=== PATIENT | male | born 1955 | race Caucasian/White ===

== ENCOUNTER 2025-02-07 16:18 | Emergency (ER) | payer OTHER, SELFPAY ==
[2025-02-07 16:24] VITALS: BP 161/131
[2025-02-07 17:06] VITALS: BP 158/91; BMI 36.0
[2025-02-07 17:08] VITALS: BP 158/91
[2025-02-07] MEDS: DUONEB 3 ML INH (17:17)
[2025-02-07 17:53] LABS: COVID-19 Antigen Negative (Negative)
[2025-02-07 18:00] VITALS: BP 151/78
--- NOTE | 2025-02-07 18:01 | ED.GENMED ---
History of Present Illness
General
Chief Complaint: Cold/Flu/URI Symptoms
Time Seen by Provider: 02/07/25 16:44
History of Present Illness
History of Present Illness:
69-year-old male with history of hyperlipidemia and CAD status post VT presents to the emergency department for evaluation of recurrent dry cough, rhinorrhea, and malaise for the past 3 days. Patient's reportedly had similar symptoms earlier this
month for approximately 3 weeks and took a course of amoxicillin with improvement before symptoms recurred. Denies any objective fever currently. No dyspnea but does note wheezing. He is a current smoker
Review of Systems
Review of Systems
Allergies reviewed?: Yes
All Other Systems: ROS reviewed and negative except as documented in HPI and ROS
Phy Exam
Physical Exam
Physical Exam:
GEN: Well appearing, NAD, WDWN
HEENT: Oral mucosa moist, no scleral icterus
Cardiac: Regular rate and rhythm, no murmur
Lung: No respiratory distress, no tachypnea, mild wheezes on expiration throughout
MSK: No gross deformity or injuries
Skin: Good color, no pallor or jaundice, no rashes
Neuro: AO x3, moves all extremities freely
Psych: Calm, cooperative
Course
Orders/Labs/Results
Orders:
Orders
02/07/25 17:12
Ipratropium/Albuterol Sulfate [Duoneb] 3 ml INH R NOW STA
CR Chest - 2 Views Urgent
Comment:
Reason For Exam: cough
02/07/25 17:18
COVID-19 Antigen Urgent
Source: Nasal Swab
Influenza A+B Rapid Molecular Urgent
LILLY Source: Nasal Swab
Specimen Description:
Vital Signs
Initial and Last Documented VS:
Initial Vital Signs
Temp Pulse Resp Pulse Ox
98.4 F 80 19 100
02/07/25 16:20 02/07/25 16:20 02/07/25 16:20 02/07/25 16:20
Last Documented Vital Signs
Temp Pulse Resp BP Pulse Ox
98.4 F 69 18 151/78 100
02/07/25 16:20 02/07/25 18:00 02/07/25 18:00 02/07/25 18:00 02/07/25 18:01
MDM/Problems Addressed
MDM/Problems Addressed:
Patient is positive for influenza, chest x-ray shows no infiltrate. He is outside the window for reasonable treatment with antivirals, will treat with bronchodilators due to wheezing. Discussed supportive treatment and ED return parameters
*Pulse Oximetry
SaO2: 100
Oxygen Mode of Delivery: Room air
Patient hypoxic: no
*Critical Care Note
Total Time (30-74mins, 75-104mins- exclusive of procedures): Not Applicable
ED Attending Note
-
Portions of this chart may have been created with voice recognition software.� Occasional wrong word or��sound alike� substitutions may have occurred due to the inherent limitations of voice recognition software.
Discharge Plan
Departure
Patient Disposition: Home (Routine Discharge)
Date of Disposition: 02/07/25
Time of Disposition: 18:01
Patient with high blood pressure during this ER visit?: No
Discharge Problem:
Influenza
Instructions: Flu in adults - ED (DC)
Prescriptions:
New
albuterol sulfate [Ventolin HFA] 90 mcg/actuation HFA aerosol inhaler
2 puff inhalation Q6H PRN (Reason: shortness of breath or wheezing) Qty: 8.5 0RF
Referrals:
Fred Ngo MD [Family Provider, Family Practice]
Interventions
Interventions:
*General Assessment Last Done: 02/07/25 16:21
*Neglect/Abuse Screening Last Done: 02/07/25 16:21
*ED COVID-19 Vaccine History Last Done: 02/07/25 16:21
*ED Influenza Vaccine History Last Done: 02/07/25 16:21
[facility] Risk Assessment Tool Last Done: 02/07/25 17:08
*Risk Screen - Suicide (C-SSRS) Last Done: 02/07/25 16:21
*Nursing Disposition Last Done: 02/07/25 18:10
ED- Pulmonary Assessment Last Done: 02/07/25 17:45
Discharge Date and Time
Discharge Date/Time: 02/07/25 18:10
Print Language: TURKISH
== END 2025-02-07 18:10 | disposition home or self-care (01) ==
LOC: EMR 16:18
PROVIDERS: Physician Assistant; EMERGENCY PHYSICIAN Student in an Organized Health Care Education/Training Program; FAMILY PHYSICIAN Family Medicine
DX: J10.1 Influenza due to other identified influenza virus with other respiratory manifestations (principal); E78.5 Hyperlipidemia, unspecified; I25.10 Atherosclerotic heart disease of native coronary artery without angina pectoris; I25.2 Old myocardial infarction; F17.200 Nicotine dependence, unspecified, uncomplicated; Z11.52 Encounter for screening for COVID-19
CPT/HCPCS: 99284; 94640; 71046; 87502; 87811